=== PATIENT | female | born 1960 | race African-American/Black ===

== ENCOUNTER 2016-11-25 15:03 | Emergency (ER) | payer MEDICARE, OTHER ==
[~2016-11-25] VITALS: Ht 162.6 cm; Wt 108.4 kg
[~2016-11-25 15:03] MED LIST: ACYCLOVIR400 MG ORAL; ALBUTEROL SULF8.5 GM INH; AZITHROMYCIN250 MG ORAL; BACTRIM DOUBLE S1 E1 ORAL; BACTRIM-DS1 EA PO; CIPROFLOXACIN500 M2 ORAL; CYCLOBENZAPRINE10 MG ORAL; DIFLUCAN100 MG PO; IBUPROFEN600 MG ORAL; IBUPROFEN600 MG PO; LEVEMIR100 UNIT/1 SUBQ; MOISTURIZING L454 ML TP; NORCO 5-325 TA1 EACH ORAL; NOVOLOG; PHENERGAN/CODE120 ML ORAL; PROMETHAZINE V237 ML ORAL; TENORMIN50 MG ORAL; VALIUM5 MG ORAL; VICODIN 5-5001 EACH PO; ZITHROMAX250 MG ORAL; lantus
[2016-11-25] MEDS ORDERED: PROMETHAZINE-D118 ML ORAL (15:56)
[2016-11-25] MEDS ORDERED: CLARITIN-D 241 EACH PO (15:56)
[2016-11-25] MEDS ORDERED: FLONASE ALLERG9.9 ML NS (15:56)
[2016-11-25 16:22] VITALS: BP 132/88
--- NOTE | 2016-11-25 22:19 | Emergency Room Report ---
History of Present Illness General Chief Complaint: Upper Respiratory Illness Source: Patient Present Illness HPI The patient is a 56 y.o F with a history of seasonal allergies presenting for watery, itchy eyes, productive cough, sneezing, nasal congestion. The patient states that the symptoms began last week and has not improved. Patient has not tried any medications. Patient denies any pain denies other symptoms including fever, chills, wheezing, shortness of breath, chest pain, rash, headache, dizziness Allergies: Coded Allergies: MORPHINE (Verified Allergy, Intermediate, dizziness and utacaria, 05/30/12) Patient History Past Medical History: see triage record Pertinent Family History: none Now: No Reviewed Nursing Documentation: PMH: Agreed, PSxH: Agreed Nursing Documentation-PMH Past Medical History: No History, Except For Hx Hypertension: Yes Hx Diabetes: Yes Hx Cancer: Yes - Right Breast Hx Cerebrovascular Accident: Yes Review of Systems All Other Systems: negative except mentioned in HPI Physical Exam Vital Signs Date Time Temp Pulse Resp B/P Pulse Ox O2 Delivery O2 Flow Rate FiO2 11/25/16 15:32 98.8 75 16 137/94 100 Room Air Sp02 EP Interpretation: reviewed, normal General Appearance: no apparent distress, alert, GCS 15, non-toxic Head: normocephalic, atraumatic Eyes: bilateral eye EOMI, bilateral eye PERRL, bilateral eye Scleral Injection , bilateral eye lid inflammation ENT: hearing grossly normal, normal pharynx, no angioedema, normal voice, uvula midline, nasal congestion Neck: full range of motion, supple/symm/no masses Respiratory: chest non-tender, lungs clear, normal breath sounds, speaking full sentences Cardiovascular #1: regular rate, rhythm, no edema Neurologic: alert, oriented x3, responsive, motor strength/tone normal, sensory intact, speech normal Psychiatric: judgement/insight normal, memory normal, mood/affect normal, no suicidal/homicidal ideation Skin: normal color, no rash, warm/dry, well hydrated Medical Decision Making PA Attestation Dr. Munguia is my supervising physician. Patient management was discussed with my supervising physician Diagnostic Impression: Primary Impression: Environmental and seasonal allergies ER Course The patient is a 56 y.o F with a history of seasonal allergies presenting for watery, itchy eyes, productive cough, sneezing, nasal congestion Differential diagnosis include but not limited to pharyngitis, rhinitis, allergies, sinusitis, AOM, bronchitis, PNA PE: No apparent distress. afebrile. + TTP over maxillary or frontal sinuses. Lungs CTA bilat. No wheezing. No accessory muscle use. Heart: RRR, no abnormal heart sounds Ears: external auditory canal clear. Non erythematous. Bilat TM intact. Cone of light present bilat. No bulging of TM. No serous fluid seen. + nasal D/C no anterior cervical lymphad No tonsillar exudate. Uvula midline.Oropharynx non erythematous The patient is discharged home with a prescription for Flonase, Claritin, and Cough medication. ER precautions are given Last Vital Signs Date Time Temp Pulse Resp B/P Pulse Ox O2 Delivery O2 Flow Rate FiO2 11/25/16 16:22 98 16 132/88 100 Room Air 11/25/16 16:22 98.4 Status: improved Disposition: HOME, SELF-CARE Condition: Improved Scripts Fluticasone Propionate (Flonase Allergy Relief) 9.9 Ml [place].susp 1 ML NS DAILY, #10 ML Prov: JOHNNY FONSECA 11/25/16 Loratadine/Pseudoephedrine (CLARITIN-D 24 HOUR TABLET) 1 Each Tab.er.24h 1 TAB PO DAILY, #30 TAB Prov: JOHNNY FONSECA.A. 11/25/16 D-Methorphan Hb/Prometh Hcl* (PROMETHAZINE-DM SYRUP*) 118 Ml Syrup 5 ML ORAL Q6H Y for For Cough, #118 ML 0 Refills Prov: JOHNNY FONSECA 11/25/16 Referrals: NON PHYSICIAN (PCP) Patient Instructions: Allergies Additional Instructions: I discussed my findings with the patient. All questions and concerns have been answered. Treatment and medication compliance have been addressed. I advised the patient that they need to follow up with PMD in 3-5 days. Return to ED if symptoms worsen, new symptoms arise, or if needed for any reason. Patient verbalized understanding of discharge instructions. JOHNNY FONSECA Nov 25, 2016 22:19
== END 2016-11-25 16:22 | disposition home or self-care (01) ==
LOC: EDUNIT# 15:55 → EMR 15:55
DX: J30.2 Other seasonal allergic rhinitis (principal); J06.9 Acute upper respiratory infection, unspecified; I10 Essential (primary) hypertension; E11.9 Type 2 diabetes mellitus without complications; Z85.3 Personal history of malignant neoplasm of breast; Z86.73 Personal history of transient ischemic attack (TIA), and cerebral infarction without residual deficits; Z88.5 Allergy status to narcotic agent
CPT/HCPCS: 99284

== ENCOUNTER 2016-12-23 15:21 | Emergency (ER) | payer MEDICARE, OTHER ==
[~2016-12-23] VITALS: Ht 162.6 cm; Wt 108.0 kg
[~2016-12-23 15:21] MED LIST changes: +CLARITIN-D 241 EACH PO; +FLONASE ALLERG9.9 ML NS; +PROMETHAZINE-D118 ML ORAL
[2016-12-23 15:41] VITALS: BP 149/69
[2016-12-23] MEDS ORDERED: Oxycodone/Acetaminophen 5-325 ORAL ONE (16:30)
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
--- NOTE | 2016-12-23 16:56 | Diagnostic Imaging Report ---
Indication: PAIN Technique: No IV contrast, reason not stated. Spiral acquisitions obtained through the . Multiplanar reconstructions were generated. Total dose length product by 95 mGycm. CTDIvol(s) 19 mGy. Radiation dose was minimized using automated exposure control Comparison: None Findings: Is minimal disease within the right maxillary sinus. There is diffuse degenerative proliferative change of the cervical spine. Posteriorly, osteophytes result in narrowing of considerable portions of the spinal canal, and there is multilevel neural foraminal narrowing. The nasopharynx, oropharynx, hypopharynx, larynx are unremarkable, except that the hypopharynx is indented by the large anterior cervical osteophytes. The trachea and proximal bronchi are unremarkable. The thyroid is diffusely enlarged, does contain focal calcifications on the right. It is slightly heterogeneous. There does appear to be a discrete nodule measuring 2.3 cm diameter in the isthmus, and a discrete hypodense nodule in the left upper pole measuring 2 cm diameter, and other nodules are likely present although subtle. Prominent and rather numerous bilateral cervical nodes are present, not frankly enlarged. No cervical mass or adenopathy otherwise. The bilateral parapharyngeal spaces are clear and symmetric. The salivary glands are unremarkable. No significant soft tissue swelling is evident. No abnormal fluid collections. No prevertebral soft tissue swelling. The lung apices are clear. Impression: No acute abnormality Diffusely enlarged thyroid, likely with multiple nodules. Consider further evaluation with thyroid ultrasound. Fairly extensive cervical spondylosis with extensive proliferative change resulting in diffuse is mild central canal stenosis, multilevel neural foraminal narrowing. Large anterior osteophytes impinge upon the hypopharynx, as well. The CT scanner at [facility] is accredited by the [employer] and the scans are performed using protocols designed to limit radiation exposure to as low as reasonably achievable to attain images of sufficient resolution adequate for diagnostic evaluation.
[2016-12-23] MEDS ORDERED: ROBAXIN-750750 MG PO (17:12)
[2016-12-23 17:22] VITALS: BP 149/69
--- NOTE | 2016-12-28 16:21 | Cardiology Report ---
APPROVED REPORT EKG Measurement Heart [id number] Normal sinus rhythm Nonspecific T wave abnormality Abnormal ECG
== END 2016-12-23 17:24 | disposition home or self-care (01) ==
LOC: EMR 15:38
DX: M46.92 Unspecified inflammatory spondylopathy, cervical region (principal); M48.02 Spinal stenosis, cervical region; M25.78 Osteophyte, vertebrae; M47.812 Spondylosis without myelopathy or radiculopathy, cervical region
CPT/HCPCS: 70490; 93005; 99284

== ENCOUNTER 2017-02-01 19:02 | Emergency (ER) | payer MEDICARE, OTHER ==
[~2017-02-01] VITALS: Ht 162.6 cm; Wt 109.8 kg
[~2017-02-01 19:02] MED LIST changes: +ROBAXIN-750750 MG PO
[2017-02-01 19:33] VITALS: BP 128/87
[2017-02-01] MEDS ORDERED: CLOTRIMAZOLE15 GM TOPIC (19:37)
[2017-02-01] MEDS ORDERED: CEPHALEXIN500 MG ORAL (19:37)
[2017-02-01 19:39] VITALS: BP 128/87
--- NOTE | 2017-02-03 21:25 | Emergency Room Report ---
History of Present Illness General Chief Complaint: Skin Rash/Abscess Present Illness HPI The patient is a 56 old female with a Hx of DM presenting for a rash of the abdomen. The patient states that she noticed the redness under the skin fold of the right abdomen yesterday. She admits to pain and some itching. Pain is described as an 8/10 dull/burning ache. Pain worse with touch. She states that she has had a fungal infection under the breast which felt similar. Pain does not radiate. She denies any other symptoms including N, V, F, chills, CP, SOB Allergies: Coded Allergies: MORPHINE (Unverified Allergy, Unknown, 12/23/16) Patient History Past Medical History: see triage record Pertinent Family History: none Reviewed Nursing Documentation: PMH: Agreed, PSxH: Agreed Nursing Documentation-PMH Hx Hypertension: Yes Hx Diabetes: Yes - dm2 Hx Cancer: Yes - Right Breast Hx Gastrointestinal Problems: No Hx Neurological Problems: No Hx Cerebrovascular Accident: Yes Review of Systems All Other Systems: negative except mentioned in HPI Physical Exam Vital Signs Date Time Temp Pulse Resp B/P Pulse Ox O2 Delivery O2 Flow Rate FiO2 02/01/17 19:13 97.9 98 16 128/87 97 Room Air Sp02 EP Interpretation: reviewed, normal General Appearance: no apparent distress, alert, GCS 15, non-toxic Head: normocephalic, atraumatic Eyes: bilateral eye PERRL, bilateral eye normal inspection ENT: hearing grossly normal, normal pharynx, no angioedema, normal voice Gastrointestinal: normal bowel sounds, non tender, soft, non-distended, no guarding, no rebound Musculoskeletal: back normal, gait/station normal, normal range of motion, non- tender Neurologic: alert, oriented x3, responsive, motor strength/tone normal, sensory intact, speech normal Psychiatric: judgement/insight normal, memory normal, mood/affect normal, no suicidal/homicidal ideation Skin: rash - There is an erythematous rash under skin fold of R abdomen Lymphatic: no adenopathy Medical Decision Making PA Attestation Dr. Munguia is my supervising physician. Patient management was discussed with my supervising physician Diagnostic Impression: Primary Impression: Cellulitis Qualified Codes: L03.311 - Cellulitis of abdominal wall Additional Impression: Malissa infection ER Course The patient is a 56 old female presenting for a rash of the abdomen. Ddx considered include but not limited to insect bite, contact dermatitis, eczema, cellulitis, candidiasis PE: vitals WNL. NAD There is an approximately 4 cm ovoid erythematous rash under the right abdominal skin fold. No satellite lesions. It is hot to the touch and tender. There are small abrasions. No bleeding The patient will be treated for for both Malissa and bacterial infection. Dr. Munguia has seen lesion and also agrees with plan. Pt will followup with PMD. ER precautions are given Last Vital Signs Date Time Temp Pulse Resp B/P Pulse Ox O2 Delivery O2 Flow Rate FiO2 02/01/17 19:39 97.9 98 16 128/87 97 Room Air Status: improved Disposition: HOME, SELF-CARE Condition: Improved Scripts Cephalexin* (KEFLEX*) 500 Mg Capsule 500 MG ORAL EVERY 6 HOURS, #28 CAP Prov: JOHNNY FONSECA P.AZbigniew 02/01/17 Clotrimazole* (LOTRIMIN*) 15 Gm Cream..g. 1 APPLIC TOPIC TWICE A DAY, #15 GM Prov: JOHNNY FONSECA.Som 02/01/17 Referrals: NON PHYSICIAN (PCP) Patient Instructions: Rash Additional Instructions: I discussed my findings with the patient. All questions and concerns have been answered. Treatment and medication compliance have been addressed. I advised the patient that they need to follow up with PMD in 3-5 days. Return to ED if symptoms worsen, new symptoms arise, or if needed for any reason. Patient verbalized understanding of discharge instructions. JOHNNY FONSECA February 03, 2017 21:24
== END 2017-02-01 19:39 | disposition home or self-care (01) ==
LOC: EMR 19:36
DX: L03.311 Cellulitis of abdominal wall (principal); B37.9 Candidiasis, unspecified; E11.9 Type 2 diabetes mellitus without complications; I10 Essential (primary) hypertension; Z85.3 Personal history of malignant neoplasm of breast; Z88.6 Allergy status to analgesic agent; Z86.73 Personal history of transient ischemic attack (TIA), and cerebral infarction without residual deficits
CPT/HCPCS: 99284